=== PATIENT | female | born 1995 | race Asian ===

== ENCOUNTER 2018-09-25 21:20 | Emergency (ER) | payer MEDICAID ==
[~2018-09-25] VITALS: Ht 152.4 cm; Wt 52.6 kg
[2018-09-25 21:55] VITALS: Ht 152.4 cm; Wt 52.6 kg
[2018-09-25 22:55] VITALS: BP 120/71
== END 2018-09-25 22:55 | disposition home or self-care (01) ==
LOC: ED 21:20
DX: S16.1XXA Strain of muscle, fascia and tendon at neck level, initial encounter (principal); S29.012A Strain of muscle and tendon of back wall of thorax, initial encounter; S09.8XXA Other specified injuries of head, initial encounter; M25.532 Pain in left wrist; M25.531 Pain in right wrist; V43.52XA Car driver injured in collision with other type car in traffic accident, initial encounter; Y93.I9 Activity, other involving external motion; Y92.488 Other paved roadways as the place of occurrence of the external cause; Y99.8 Other external cause status

== ENCOUNTER 2018-09-30 20:21 | Emergency (ER) | payer MEDICAID ==
[~2018-09-30] VITALS: Ht 152.4 cm; Wt 53.1 kg
[2018-09-30 20:28] VITALS: BP 118/78; Ht 152.4 cm; Wt 53.1 kg
== END 2018-09-30 22:26 | disposition home or self-care (01) ==
LOC: ED 20:21
DX: F07.81 Postconcussional syndrome (principal); V89.2XXD Person injured in unspecified motor-vehicle accident, traffic, subsequent encounter
CPT/HCPCS: J0780; Q0162